=== PATIENT | male | born 1935 | race Caucasian/White ===

== ENCOUNTER 2018-09-30 09:34 | Day surgery (SDC) | payer MEDICARE, OTHER ==
[~2018-09-30] VITALS: Ht 182.9 cm; Wt 94.6 kg
[2018-09-30] VITALS (10 sets, daily range): BP systolic 100–124; BP diastolic 61–85
[2018-09-30] MEDS ORDERED: fentaNYL/PF 50MCG/1 ML 2ML syringe IV ONE (10:10)
[2018-09-30] MEDS ORDERED: normal saline 1000ml 1,000 ML IV SCH (10:10)
[2018-09-30] MEDS ORDERED: MIDAZolam 5mg/ml 2ml vial IV ONE (10:10)
[2018-09-30] MEDS ORDERED: glycopyrrolate 0.2mg/ml inj IV ONE (10:10)
[2018-09-30] MEDS ORDERED: FURO40TA4 PO (10:19)
[2018-09-30] MEDS ORDERED: CHLO25TA2 PO (10:19)
[2018-09-30] MEDS ORDERED: APIX5TAB3 PO (10:19)
[2018-09-30] MEDS ORDERED: POTA20TA19 PO (10:19)
[2018-09-30] MEDS ORDERED: MULT1TAB74 PO (10:19)
[2018-09-30] MEDS ORDERED: ALBU18HF2 INH (10:19)
[2018-09-30 10:54] LABS: BASOPHILS % (AUTO) 0.3 % (0-1); EOSINOPHILS # (AUTO) 0.1 X10'3 (0-0.9); EOSINOPHILS % (AUTO) 1.1 % (0-6); HEMATOCRIT 51.8 % (42.0-52.0); HEMOGLOBIN 17.9 g/dl (14.0-17.9); LYMPHOCYTES # (AUTO) 1.5 X10'3 (1.1-4.8); LYMPHOCYTES % (AUTO) 16.4 % (21-51); MEAN CORPUSCULAR HEMOGLOBIN 34.5 PG (27.0-31.0); MEAN CORPUSCULAR HGB CONC 34.6 g/dL (33.0-36.5); MEAN CORPUSCULAR VOLUME 99.5 FL (78-98); MEAN PLATELET VOLUME 8.5 FL (7.4-10.4); MONOCYTES % (AUTO) 11.1 % (2-12); NEUTROPHILS # (AUTO) 6.4 X10'3 (1.8-7.7); NEUTROPHILS % (AUTO) 71.1 % (42-75); PLATELET COUNT 168 X10'3 (140-440); RED BLOOD COUNT 5.21 X10'6 (4.70-6.10); RED CELL DISTRIBUTION WIDTH 13.3 % (11.5-14.5); WHITE BLOOD COUNT 8.9 X10'3 (4.5-11.0)
[2018-09-30 11:15] LABS: ALBUMIN 4.2 G/DL (3.4-5.0); ANION GAP 13 (8-16); BLOOD UREA NITROGEN 39 MG/DL (7-18); BUN/CREATININE RATIO 27.5 (5.4-32.0); CALCIUM 9.8 MG/DL (8.5-10.1); CHLORIDE 95 MMOL/L (99-107); CREATININE 1.42 MG/DL (0.60-1.10); GLUCOSE 119 MG/DL (70-104); MAGNESIUM 2.2 MG/DL (1.5-2.4); POTASSIUM 3.3 MMOL/L (3.5-5.1); SODIUM 139 MMOL/L (135-145); TOTAL CARBON DIOXIDE 30.8 MMOL/L (24-32); eGFR 48 ML/MIN
[2018-09-30 11:22] LABS: INR 1.1 INR; PROTHROMBIN TIME 11.4 SECONDS (9.0-12.0)
[2018-09-30] MEDS ORDERED: metoprolol tartrate 1mg/ml inj IV STA (11:36)
[2018-09-30] MEDS ORDERED: magnesium 2GM in 50ml NS 50 ML IV STA (11:54)
[2018-09-30] MEDS ORDERED: LIDOcaine 1% (10mg/ml) 2ml vial ONE (15:14)
== END 2018-09-30 14:25 | disposition home or self-care (01) ==
LOC: SSTAY O 09:34
PROVIDERS: ATTEND Internal Medicine Cardiovascular Disease
DX: I48.91 Unspecified atrial fibrillation (principal); I08.0 Rheumatic disorders of both mitral and aortic valves; I45.19 Other right bundle-branch block; R06.00 Dyspnea, unspecified; E87.6 Hypokalemia
CPT/HCPCS: 36415; 80048; 83735; 85025; 85610; 92960; 93005; 93312; J2250; J3010; J3475; J3490; 93325; J7030